=== PATIENT | male | born 1945 | race Caucasian/White ===

== ENCOUNTER 2018-02-04 15:52 | Outpatient (RCR) | payer OTHER, SELFPAY ==
--- NOTE | 2018-02-04 09:50 | PTTR_ITS ---
DATE: 02/04/18 SUBJECTIVE: Manuel states that his symptoms of dizziness are about the same. He is going to meet with his doctor in 2 weeks to discuss his medications which he feels maybe is contributing to his symptoms of dizziness. OBJECTIVE: Manual therapy: ([id number]). Pt received manual mobilization of the cervical spine beginning in supine position with gentle manual cervical traction and sub occipital release. He received PROM through all planes and manual mobilization of the cervical segments. He continues to have significant restriction in the lower cervical segments particularly at C7-T1 and he received PA mobilizations here as well as unilateral PA mobilizations with contralateral cervical rotation which was performed (B). He received segmental side glides throughout the mid cervical segments all with good tolerance followed by deep tissue mobilization techniques throughout the cervical paraspinals, upper traps and levator scap. Direct treatment time: 30 minutes Total treatment time: 30 minutes ASSESSMENT/ PLAN: Was scheduled a follow in 2 weeks time pt understands that if symptoms do not seem to be influenced by mobilization of the cervical spine he can go ahead and cancel that appt. Otherwise we will re-eval at that time and progress accordingly.
--- NOTE | 2018-02-22 14:06 | NT_ITS ---
Manuel did not show up for today's scheduled appointment. SS/gc
== END 2018-02-26 23:59 | disposition home or self-care (01) ==
LOC: PT 15:52
PROVIDERS: PCP Family Medicine; Referring Provider Psychiatry & Neurology Neurology; Visit Provider Psychiatry & Neurology Neurology
DX: R42 Dizziness and giddiness (principal); H51.8 Other specified disorders of binocular movement; M54.2 Cervicalgia; M43.6 Torticollis
CPT/HCPCS: 97140

== ENCOUNTER → 2018-04-19 08:14 | Outpatient (BNVA) | payer OTHER, SELFPAY | PROVIDERS: PCP Family Medicine; Visit Provider Psychiatry & Neurology Neurology | DX: I63.9 Cerebral infarction, unspecified (principal); R53.82 Chronic fatigue, unspecified; R42 Dizziness and giddiness; R41.3 Other amnesia; I10 Essential (primary) hypertension; E11.40 Type 2 diabetes mellitus with diabetic neuropathy, unspecified; Z79.84 Long term (current) use of oral hypoglycemic drugs | CPT/HCPCS: 99214 ==

== ENCOUNTER → 2018-10-05 10:34 | Outpatient (BNVA) | payer OTHER, SELFPAY | PROVIDERS: PCP Family Medicine; Visit Provider Psychiatry & Neurology Neurology | DX: I63.9 Cerebral infarction, unspecified (principal); R42 Dizziness and giddiness; R41.3 Other amnesia; G47.33 Obstructive sleep apnea (adult) (pediatric); E11.40 Type 2 diabetes mellitus with diabetic neuropathy, unspecified; I10 Essential (primary) hypertension; Z79.84 Long term (current) use of oral hypoglycemic drugs | CPT/HCPCS: 99213 ==

== ENCOUNTER 2018-11-29 12:55 | Outpatient (REF) | payer OTHER, SELFPAY ==
[2018-11-29 15:36] LABS: COMMENT (LAB VIEW ONLY) 66.68 mg/dL; Microalb ug/mg Crea 33.1 ug/mg Cr
== END 2018-11-29 13:15 ==
LOC: LBN 12:55
PROVIDERS: PCP Family Medicine; Visit Provider Family Medicine
DX: E11.65 Type 2 diabetes mellitus with hyperglycemia (principal)
CPT/HCPCS: 82043; 82570

== ENCOUNTER → 2019-02-08 10:04 | Outpatient (BNVA) | payer OTHER, SELFPAY | PROVIDERS: PCP Family Medicine; Visit Provider Psychiatry & Neurology Neurology | DX: I63.9 Cerebral infarction, unspecified (principal); R53.83 Other fatigue; R42 Dizziness and giddiness; R41.3 Other amnesia; I10 Essential (primary) hypertension; E11.9 Type 2 diabetes mellitus without complications; Z79.84 Long term (current) use of oral hypoglycemic drugs | CPT/HCPCS: 99214 ==

== ENCOUNTER 2019-08-31 07:13 | Outpatient (CLI) | payer OTHER, SELFPAY ==
--- NOTE | 2019-08-31 09:15 | DI.US_ITS ---
EXAM: US CAROTID CLINICAL HISTORY: Previous history, needs annual b/l recheck, carotid stenosis, I65.29. TECHNIQUE: Ultrasound carotids performed using grayscale, color-flow, and spectral Doppler imaging. COMPARISON: No exams were available for comparison FINDINGS: On the right, there is moderate plaque seen in the carotid bulb and proximal internal carotid artery. No hemodynamically significant velocity elevations are present. The right vertebral artery is ante grade. On the left, there is moderate calcific plaque seen in the carotid bulb and proximal internal carotid artery. No hemodynamically significant velocity elevations are present. Left vertebral artery is a ntegrade. IMPRESSION: No evidence for hemodynamically significant carotid stenosis. Criteria for Carotid Stenosis: Normal: ICA PSV <125 cm/s no plaque or intimal thickening is visible. <50% stenosis: ICA PSV <125 cm/s and plaque or intimal thickening is visible. 50-69% stenosis: ICA PSV is 125-250 cm/s and plaque is visible. >70% stenosis to near occlusion: ICA PSV >250 cm/s with visible plaque and luminal narrowing. DATA REPOSITORY:
== END 2019-08-31 07:33 ==
PROVIDERS: PCP Family Medicine; Visit Provider Family Medicine
DX: I65.23 Occlusion and stenosis of bilateral carotid arteries (principal)
CPT/HCPCS: 93880

== ENCOUNTER 2022-08-05 03:38 | Outpatient (CLI) | payer MEDICARE, SELFPAY ==
[2022-08-05 09:19] LABS: ALT 71 U/L (16-63); AST 48 U/L (15-37); Albumin 4.2 g/dL (3.4-5.0); Alkaline Phosphatase 76 U/L (46-116); Anion Gap 7.7 mmol/L (3-11); BUN 16 mg/dL (7-18); Bilirubin, Total 1.7 mg/dL (0.2-1.0); CO2 30.3 mmol/L (21.0-32.0); Calcium 9.4 mg/dL (8.5-10.1); Chloride 106 mmol/L (98-107); Estimated GFR 77.52 (mL/min/1.73m2); Glucose 93 mg/dL (74-106); Sodium 144 mmol/L (136-145); Total Protein 7.5 g/dL (6.4-8.2)
== END 2022-08-05 03:39 | disposition home or self-care (01) ==
LOC: LBO 03:38
PROVIDERS: Absent Provider Family Medicine; PCP Family Medicine; Referring Provider Family Medicine; Visit Provider Family Medicine
DX: E11.9 Type 2 diabetes mellitus without complications (principal); I10 Essential (primary) hypertension
CPT/HCPCS: 36415; 80053

== ENCOUNTER 2022-09-10 01:46 | Outpatient (CLI) | payer MEDICARE, SELFPAY ==
--- NOTE | 2022-09-10 06:30 | DI.US_ITS ---
Exam(s) US AAA SCREENING EXAM: US AAA SCREENING CLINICAL HISTORY: screening for aaa, former smoker, z87.891 COMPARISON: No exams were available for comparison FINDINGS: Abdominal Aorta: Proximal: 2.3 x 2.2 cm Mid: 1.9 x 2.0 cm Distal: 1.9 x 1.8 cm Iliac's: Right: 1.3 x 1.4 cm Left: 1.2 x 1.5 cm No significant atherosclerotic disease is seen. IMPRESSION: No evidence of abdominal aortic aneurysm. DATA REPOSITORY:
== END 2022-09-10 02:06 ==
PROVIDERS: PCP Family Medicine; Visit Provider Family Medicine
DX: Z13.6 Encounter for screening for cardiovascular disorders (principal); Z87.891 Personal history of nicotine dependence; I65.23 Occlusion and stenosis of bilateral carotid arteries; I10 Essential (primary) hypertension
CPT/HCPCS: 76706